=== PATIENT | female | born 1985 | race African-American/Black ===

== ENCOUNTER 2017-05-14 13:19 | Emergency (ER) | payer BC ==
[2017-05-14] MEDS ORDERED: NORMAL SALINE 1000 ML 1,000 ML IV ONE ×2 (15:36→18:00)
[2017-05-14] MEDS ORDERED: DIPHENHYDRAMINE HCL 50 MG/ML VIAL IV ONE (15:41)
--- NOTE | 2017-05-14 15:42 | ER Document Report ---
HPI - HPI Patient complains to provider of: cough, sneezing Onset: Other - 2 days Onset/Duration: Persistent Quality of pain: Achy Pain Level: 4 Context: She presents complaining of cough, sneezing and generalized body aches. Patient has had nausea and has not been able to keep food down. Patient denies any fever or urinary symptoms. Patient denies any vaginal bleeding or discharge. Associated Symptoms: Nonproductive cough, Nausea, Vomiting. denies: Productive cough, Fever Exacerbated by: Denies Relieved by: Denies Similar symptoms previously: No Recently seen / treated by doctor: No - ROS ROS below otherwise negative: Yes Systems Reviewed and Negative: Yes All other systems reviewed and negative - CONSTITUTIONAL Constitutional: DENIES: Fever - EENT EENT: REPORTS: Congestion - CARDIOVASCULAR Cardiovascular: DENIES: Chest pain - RESPIRATORY Respiratory: REPORTS: Coughing - GASTROINTESTINAL Gastrointestinal: REPORTS: Abdominal Pain, Nausea, Patient vomiting. 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 Lives with: Spouse/Significant other Family History: None Pulmonary Medical History: Reports: Hx Asthma Neurological Medical History: Denies: Hx Seizures Endocrine Medical History: Denies: Hx Diabetes Mellitus Type 1 Renal/ Medical History: Denies: Hx Kidney Stones GI Medical History: Reports: Hx Gastroesophageal Reflux Disease Past Surgical History: Reports: Hx Oral Surgery - wisdom - Immunizations Hx Diphtheria, Pertussis, Tetanus Vaccination: No Vertical Provider Document - CONSTITUTIONAL Agree With Documented VS: Yes Exam Limitations: No Limitations General Appearance: WD/WN, No Apparent Distress - INFECTION CONTROL TRAVEL OUTSIDE OF THE [place] IN LAST 30 DAYS: No - HEENT HEENT: Atraumatic, Normal ENT Exam, Normocephalic - NECK Neck: Normal Inspection, Supple. negative: Lymphadenopathy-Left, Lymphadenopathy-Right - RESPIRATORY Respiratory: Breath Sounds Normal, No Respiratory Distress, Chest Non-Tender O2 Sat by Pulse Oximetry: 98 - CARDIOVASCULAR Cardiovascular: Regular Rhythm, No Murmur, Tachycardia - GI/ABDOMEN Gastrointestinal: Abdomen Soft, Abdomen Tender - epigastric, Normal Bowel Sounds. negative: Abdominal Guarding - BACK Back: Normal Inspection. negative: CVA Tenderness-Right, CVA Tenderness-Left - MUSCULOSKELETAL/EXTREMETIES Musculoskeletal/Extremeties: VIC MEHTA - NEURO Level of Consciousness: Awake, Alert, Appropriate Motor/Sensory: No Motor Deficit - DERM Integumentary: Warm, Dry, No Rash Course - Re-evaluation Re-evalutation: 05/14/17 18:05 Patient's breath sounds clear, no concern for pneumonia at this time. Respirations unlabored. Patient without any emesis during ER stay. Discussed worsening symptoms that patient should return immediately for. Patient verbalized understanding and agrees with plan of care. - Vital Signs Vital signs: Temp Pulse Resp BP Pulse Ox 99.8 F 111 H 20 133/70 H 98 05/14/17 13:35 05/14/17 13:35 05/14/17 13:35 05/14/17 13:35 05/14/17 13:35 - Laboratory Result Diagrams: 05/14/17 15:55 05/14/17 15:55 Discharge - Discharge Clinical Impression: Cough Nausea and vomiting Qualifiers: Vomiting type: unspecified Vomiting Intractability: non-intractable Qualified Code(s): R11.2 - Nausea with vomiting, unspecified Qualifiers: Weeks of gestation: 12 weeks Qualified Code(s): Z3A.12 - 12 weeks gestation of Condition: Stable Disposition: HOME, SELF-CARE Instructions: Antinausea Medication ([facility]), Intravenous (IV) Fluids ([facility]), Viral Syndrome ([facility]), Vomiting ([facility]) Additional Instructions: Return immediately for any new or worsening symptoms Followup with your primary care provider, call tomorrow to make a followup appointment Prescriptions: Promethazine HCl [Phenergan 25 mg Tablet] 25 mg PO Q6H PRN #12 tablet PRN Reason: Forms: Return to Work Referrals: BK SANDERS FNP-C [Primary Care Provider] - Follow up as needed [facility] [Provider Group] - Follow up tomorrow
[2017-05-14] MEDS ORDERED: ACETAMINOPHEN 325 MG TABLET PO ONE (16:15)
[2017-05-14 16:18] LABS: ABSOLUTE LYMPHOCYTES (AUTO) 0.9 10^3/uL (0.5-4.7); ABSOLUTE MONOCYTES (AUTO) 0.5 10^3/uL (0.1-1.4); ABSOLUTE NEUT (AUTO) 6.3 10^3/uL (1.7-8.2); BASOPHILS % (AUTO) 0.3 % (0-2); EOSINOPHILS % (AUTO) 0.6 % (0-6); HEMATOCRIT 36.4 % (36.0-47.0); HEMOGLOBIN 12.3 g/dL (12.0-15.5); LYMPHOCYTES % (AUTO) 11.3 % (13-45); MEAN CORPUSCULAR HEMOGLOBIN 28.9 pg (27.0-33.4); MEAN CORPUSCULAR HGB CONC 33.9 g/dL (32.0-36.0); MEAN CORPUSCULAR VOLUME 85 fl (80-97); MONOCYTES % (AUTO) 6.7 % (3-13); PLATELET COUNT 281 10^3/uL (150-450); RED BLOOD COUNT 4.27 10^6/uL (3.72-5.28); RED CELL DISTRIBUTION WIDTH 13.4 % (11.5-14.0); SEGMENTED NEUTROPHILS % (AUTO) 81.1 % (42-78); TOTAL CELLS COUNTED % (AUTO) 100 %; WHITE BLOOD COUNT 7.8 10^3/uL (4.0-10.5)
[2017-05-14 16:36] LABS: ALANINE AMINOTRANSFERASE 55 U/L (9-52); ALBUMIN 4.3 g/dL (3.5-5.0); ALKALINE PHOSPHATASE 85 U/L (38-126); ANION GAP 12 (5-19); ASPARTATE AMINO TRANSFERASE 33 U/L (14-36); BILIRUBIN,DIRECT 0.6 mg/dL (0.0-0.4); BILIRUBIN,TOTAL 0.9 mg/dL (0.2-1.3); BLOOD UREA NITROGEN 9 mg/dL (7-20); CALCIUM 9.7 mg/dL (8.4-10.2); CARBON DIOXIDE 20 mmol/L (22-30); CHLORIDE 101 mmol/L (98-107); GLUCOSE 86 mg/dL (75-110); LIPASE 74.9 U/L (23-300); SODIUM 133.4 mmol/L (137-145); TOTAL PROTEIN 7.5 g/dL (6.3-8.2)
[2017-05-14 17:49] LABS: APPEARANCE,URINE SLIGHTLY-CLOUDY; BILIRUBIN,URINE NEGATIVE (NEGATIVE); COLOR,URINE YELLOW; GLUCOSE, URINE NEGATIVE (NEGATIVE); KETONES,URINE 80 mg/dL (NEGATIVE); LEUKOCYTE ESTERASE,URINE NEGATIVE (NEGATIVE); NITRITE,URINE NEGATIVE (NEGATIVE); PROTEIN,URINE 30 mg/dL (NEGATIVE); URINE SPECIFIC GRAVITY 1.029
[2017-05-14 19:01] VITALS: BP 122/69
== END 2017-05-14 19:01 | disposition home or self-care (01) ==
LOC: ER 13:19
DX: O26.891 Other specified pregnancy related conditions, first trimester (principal); R05 Cough; R06.7 Sneezing; R10.9 Unspecified abdominal pain; O21.9 Vomiting of pregnancy, unspecified; O99.511 Diseases of the respiratory system complicating pregnancy, first trimester; J45.909 Unspecified asthma, uncomplicated; Z3A.12 12 weeks gestation of pregnancy
CPT/HCPCS: 99283; 96361; 96374; 36415; 83690; 85025; 80053; 81001; J1200; J7030

== ENCOUNTER 2017-06-28 20:18 | Emergency (ER) | payer BC, MEDICAID ==
[2017-06-28] MEDS ORDERED: METOCLOPRAMIDE HCL INJ/PF 10 MG/2 ML SDV IV ONE (22:42)
[2017-06-28] MEDS ORDERED: DIPHENHYDRAMINE HCL 50 MG/ML VIAL IV ONE (22:42)
[2017-06-28] MEDS ORDERED: NORMAL SALINE 1000 ML 1,000 ML IV ONE (22:42)
--- NOTE | 2017-06-28 22:44 | ER Document Report ---
ED Medical Screen (RME) - General Chief Complaint: Vomiting Stated Complaint: VOMITING Time Seen by Provider: 06/28/17 22:42 Mode of Arrival: Ambulatory Information source: Patient Notes: Patient presents complaining of headache, nausea and vomiting. Patient states she has had vomiting off and on over this past week but vomited 3 times today. Patient complains of upper abdominal tenderness that she attributes to the vomiting. Patient states she has been unable to keep any liquids down or food today. Patient is currently 19 weeks . Patient has a history of GERD and tonsillectomy. Patient denies any vaginal bleeding. I have greeted and performed a rapid initial assessment of this patient. A comprehensive ED assessment and evaluation of the patient, analysis of test results and completion of the medical decision making process will be conducted by additional ED providers. TRAVEL OUTSIDE OF THE [place] IN LAST 30 DAYS: No - Related Data Allergies/Adverse Reactions: benzocaine [From Chloraseptic] Allergy (Verified 05/14/17 13:21) menthol [From Chloraseptic] Allergy (Verified 05/14/17 13:21) phenol [From Chloraseptic] Allergy (Verified 05/14/17 13:21) sodium phenolate [From Chloraseptic] Allergy (Verified 05/14/17 13:21) Past Medical History Pulmonary Medical History: Reports: Hx Asthma Neurological Medical History: Denies: Hx Seizures Endocrine Medical History: Denies: Hx Diabetes Mellitus Type 1 Renal/ Medical History: Denies: Hx Kidney Stones, Hx Peritoneal Dialysis GI Medical History: Reports: Hx Gastroesophageal Reflux Disease Past Surgical History: Reports: Hx Oral Surgery - wisdom - Immunizations Hx Diphtheria, Pertussis, Tetanus Vaccination: No Physical Exam - Vital signs Vitals: Temp Pulse Resp BP Pulse Ox 98.2 F 93 18 132/70 H 100 06/28/17 20:35 06/28/17 20:35 06/28/17 20:35 06/28/17 20:35 06/28/17 20:35 - Abdominal Tenderness: Tender - Epigastric Course - Vital Signs Vital signs: Temp Pulse Resp BP Pulse Ox 98.2 F 93 18 132/70 H 100 06/28/17 20:35 06/28/17 20:35 06/28/17 20:35 06/28/17 20:35 06/28/17 20:35
[2017-06-28 23:35] LABS: ABSOLUTE BASOPHILS # (AUTO) 0.1 10^3/uL (0.0-0.2); ABSOLUTE EOSINOPHILS # (AUTO) 0.1 10^3/uL (0.0-0.6); ABSOLUTE LYMPHOCYTES (AUTO) 2.8 10^3/uL (0.5-4.7); ABSOLUTE MONOCYTES (AUTO) 0.5 10^3/uL (0.1-1.4); ABSOLUTE NEUT (AUTO) 6.2 10^3/uL (1.7-8.2); BASOPHILS % (AUTO) 0.6 % (0-2); EOSINOPHILS % (AUTO) 0.9 % (0-6); HEMATOCRIT 33.6 % (36.0-47.0); HEMOGLOBIN 11.6 g/dL (12.0-15.5); LYMPHOCYTES % (AUTO) 28.8 % (13-45); MEAN CORPUSCULAR HEMOGLOBIN 29.2 pg (27.0-33.4); MEAN CORPUSCULAR HGB CONC 34.4 g/dL (32.0-36.0); MEAN CORPUSCULAR VOLUME 85 fl (80-97); MONOCYTES % (AUTO) 5.3 % (3-13); PLATELET COUNT 299 10^3/uL (150-450); RED BLOOD COUNT 3.96 10^6/uL (3.72-5.28); RED CELL DISTRIBUTION WIDTH 13.7 % (11.5-14.0); SEGMENTED NEUTROPHILS % (AUTO) 64.4 % (42-78); TOTAL CELLS COUNTED % (AUTO) 100 %; WHITE BLOOD COUNT 9.7 10^3/uL (4.0-10.5)
[2017-06-28 23:36] LABS: APPEARANCE,URINE SLIGHTLY-CLOUDY; BILIRUBIN,URINE NEGATIVE (NEGATIVE); COLOR,URINE AMBER; GLUCOSE, URINE NEGATIVE (NEGATIVE); KETONES,URINE 80 mg/dL (NEGATIVE); LEUKOCYTE ESTERASE,URINE NEGATIVE (NEGATIVE); NITRITE,URINE NEGATIVE (NEGATIVE); PROTEIN,URINE 30 mg/dL (NEGATIVE); URINE SPECIFIC GRAVITY 1.027
[2017-06-28 23:49] LABS: ALANINE AMINOTRANSFERASE 35 U/L (9-52); ALBUMIN 4.2 g/dL (3.5-5.0); ALKALINE PHOSPHATASE 94 U/L (38-126); ANION GAP 14 (5-19); ASPARTATE AMINO TRANSFERASE 27 U/L (14-36); BILIRUBIN,DIRECT 0.3 mg/dL (0.0-0.4); BILIRUBIN,TOTAL 0.6 mg/dL (0.2-1.3); BLOOD UREA NITROGEN 5 mg/dL (7-20); CALCIUM 9.8 mg/dL (8.4-10.2); CARBON DIOXIDE 24 mmol/L (22-30); CHLORIDE 101 mmol/L (98-107); GLUCOSE 85 mg/dL (75-110); LIPASE 87.1 U/L (23-300); POTASSIUM 3.8 mmol/L (3.6-5.0); SODIUM 138.7 mmol/L (137-145); TOTAL PROTEIN 7.4 g/dL (6.3-8.2)
--- NOTE | 2017-06-29 00:51 | ER Document Report ---
ED GI/ - General Mode of Arrival: Ambulatory TRAVEL OUTSIDE OF THE [place] IN LAST 30 DAYS: No <DIANE RUTLEDGE - Last Filed: 06/29/17 00:51> <CHIRAG JEFEFRSON - Last Filed: 06/29/17 02:09> - General Chief Complaint: Vomiting Stated Complaint: VOMITING Time Seen by Provider: 06/28/17 22:42 - Related Data Allergies/Adverse Reactions: benzocaine [From Chloraseptic] Allergy (Verified 05/14/17 13:21) menthol [From Chloraseptic] Allergy (Verified 05/14/17 13:21) phenol [From Chloraseptic] Allergy (Verified 05/14/17 13:21) sodium phenolate [From Chloraseptic] Allergy (Verified 05/14/17 13:21) Past Medical History - General Information source: Patient - Social History Family History: None Pulmonary Medical History: Reports: Hx Asthma Neurological Medical History: Denies: Hx Seizures Endocrine Medical History: Denies: Hx Diabetes Mellitus Type 1 Renal/ Medical History: Denies: Hx Kidney Stones, Hx Peritoneal Dialysis GI Medical History: Reports: Hx Gastroesophageal Reflux Disease Past Surgical History: Reports: Hx Oral Surgery - wisdom - Immunizations Hx Diphtheria, Pertussis, Tetanus Vaccination: No <DIANE RUTLEDGE - Last Filed: 06/29/17 00:51> - General Information source: Patient - Social History Smoking Status: Never Smoker <CHIRAG JEFFERSON - Last Filed: 06/29/17 02:09> Physical Exam - Vital signs Interpretation: Normal - General General appearance: Appears well, Alert - HEENT Head: Normocephalic, Atraumatic Eyes: Normal Pupils: PERRL - Respiratory Respiratory status: No respiratory distress Chest status: Nontender Breath sounds: Normal Chest palpation: Normal - Cardiovascular Rhythm: Regular Heart sounds: Normal auscultation Murmur: No - Abdominal Inspection: Normal, Gravid female Distension: No distension Bowel sounds: Normal Tenderness: Nontender Organomegaly: No organomegaly - Back Back: Normal, Nontender - Extremities General upper extremity: Normal inspection, Nontender, Normal color, Normal ROM , Normal temperature General lower extremity: Normal inspection, Nontender, Normal color, Normal ROM , Normal temperature, Normal weight bearing. No: Sang's sign - Neurological Neuro grossly intact: Yes Cognition: Normal Orientation: AAOx4 [place] Coma Scale Eye Opening: Spontaneous [place] Coma Scale Verbal: Oriented [place] Coma Scale Motor: Obeys Commands [place] Coma Scale Total: 15 Speech: Normal Motor strength normal: LUE, RUE, LLE, RLE Sensory: Normal - Psychological Associated symptoms: Normal affect, Normal mood - Skin Skin Temperature: Warm Skin Moisture: Dry Skin Color: Normal <CHIRAG JEFFERSON - Last Filed: 06/29/17 02:09> - Vital signs Vitals: Temp Pulse Resp BP Pulse Ox 98.2 F 93 18 132/70 H 100 06/28/17 20:35 06/28/17 20:35 06/28/17 20:35 06/28/17 20:35 06/28/17 20:35 Course - Laboratory Result Diagrams: 06/28/17 23:05 06/28/17 23:05 <DIANE RUTLEDGE - Last Filed: 06/29/17 00:51> - Laboratory Result Diagrams: 06/28/17 23:05 06/28/17 23:05 - Diagnostic Test Radiology reviewed: Reports reviewed <CHIRAG JEFFERSON - Last Filed: 06/29/17 02:09> - Re-evaluation Re-evalutation: 06/29/17 02:08 Patient with no focal findings on exam. Feels better at this time. Sludge in gallbladder ultrasound. Blood work within normal limits. Patient will have additions to her reflux medications including increasing her Zantac to 150 twice daily, adding Protonix and Carafate. She is to follow-up with her BAGGAGE CHECKER and return if she has any worsening or concerning symptoms. Understands agrees with plan. Stable for discharge. Requesting to go home. (CHIRAG JEFFERSON) - Vital Signs Vital signs: Temp Pulse Resp BP Pulse Ox 98.3 F 86 16 135/69 H 100 06/29/17 00:08 06/29/17 00:08 06/29/17 00:08 06/29/17 00:08 06/29/17 00:08 - Laboratory Laboratory results interpreted by me: 06/28/17 06/28/17 06/28/17 23:05 23:05 23:05 Hgb 11.6 L Hct 33.6 L BUN 5 L Urine Protein 30 H Urine Ketones 80 H Urine Urobilinogen 2.0 H Discharge <ALPHONSO RUTLEDGEON - Last Filed: 06/29/17 00:51> <CHIRAG JEFFERSON - Last Filed: 06/29/17 02:09> - Discharge Clinical Impression: GERD (gastroesophageal reflux disease) Qualifiers: Esophagitis presence: esophagitis presence not specified Qualified Code(s): K21.9 - Gastro-esophageal reflux disease without esophagitis Vomiting Qualifiers: Vomiting type: unspecified Vomiting Intractability: non-intractable Nausea presence: with nausea Qualified Code(s): R11.2 - Nausea with vomiting, unspecified Condition: Stable Disposition: HOME, SELF-CARE Instructions: Reflux Disease (GERD) ([facility]) Additional Instructions: Please follow-up with your BAGGAGE CHECKER as scheduled. Prescriptions: Pantoprazole Sodium [Protonix] 40 mg PO DAILY #30 tablet. Ranitidine HCl [Zantac 150 mg Tablet] 150 mg PO BID #60 tablet Sucralfate [Carafate 1 gm Tablet] 1 gm PO ACHS #120 tablet Referrals: KT MUSE MD [Primary Care Provider] - Follow up as needed Scribe Attestation: 06/29/17 02:08 I personally performed the services described in the documentation, reviewed and edited the documentation which was dictated to the scribe in my presence, and it accurately records my words and actions. (CHIRAG JEFFERSON)
[2017-06-29] MEDS ORDERED: NORMAL SALINE 1000 ML 1,000 ML IV ONE (00:54)
[2017-06-29] MEDS ORDERED: PANTOPRAZOLE SODIUM 40 MG VIAL IV ONE (01:11)
--- NOTE | 2017-06-29 01:23 | RADIOLOGY REPORT (SQ) ---
EXAM DESCRIPTION: U/S ABDOMEN LIMITED W/O DOP CLINICAL HISTORY: 32 years, Female, epig pain, vomiting COMPARISON: None. LIMITATIONS: None. FINDINGS: Gallbladder sludge. Negative sonographic Anand's test. Gallbladder wall thickness is 0.26 cm. No biliary ductal dilation. Common bile duct diameter 0.4 cm. Liver, 10 cm right kidney, abdominal aorta, partially obscured pancreas appear otherwise unremarkable. No ascites. IMPRESSION: No acute findings. Gallbladder sludge.
[2017-06-29 02:20] VITALS: BP 129/69
== END 2017-06-29 02:50 | disposition home or self-care (01) ==
LOC: ER 20:18
DX: O99.612 Diseases of the digestive system complicating pregnancy, second trimester (principal); K21.9 Gastro-esophageal reflux disease without esophagitis; O26.892 Other specified pregnancy related conditions, second trimester; R11.10 Vomiting, unspecified; Z3A.19 19 weeks gestation of pregnancy; J45.909 Unspecified asthma, uncomplicated
CPT/HCPCS: 99284; 96361; 96374; 36415; 83690; 85025; 80053; 81001; 76705; S0164; J7030

== ENCOUNTER 2017-10-24 10:38 | Emergency (ER) | payer BC, MEDICAID ==
[2017-10-24 10:46] VITALS: BP 154/92
--- NOTE | 2017-10-24 11:13 | ER Document Report ---
ED Medical Screen (RME) - General Chief Complaint: Edema Stated Complaint: SWELLING OF FEET ANKLES AND HANDS Time Seen by Provider: 10/24/17 11:10 Mode of Arrival: Ambulatory Information source: Patient Notes: This is a 32-year-old female 1, 36 weeks with a history of gestational diabetes who presents to the emergency room with swelling in the hands and feet. Patient denies headache. Patient denies abdominal pain, nausea or vomiting. Patient's blood pressure is found to be elevated in triage. Her lungs are clear. Her exam does reveal peripheral edema. TRAVEL OUTSIDE OF THE [place] IN LAST 30 DAYS: No - Related Data Allergies/Adverse Reactions: benzocaine [From Chloraseptic] Allergy (Verified 10/24/17 10:39) menthol [From Chloraseptic] Allergy (Verified 10/24/17 10:39) phenol [From Chloraseptic] Allergy (Verified 10/24/17 10:39) sodium phenolate [From Chloraseptic] Allergy (Verified 10/24/17 10:39) Past Medical History - Social History Chew tobacco use (# tins/day): No Frequency of alcohol use: None Drug Abuse: None Pulmonary Medical History: Reports: Hx Asthma Neurological Medical History: Denies: Hx Seizures Endocrine Medical History: Denies: Hx Diabetes Mellitus Type 1 Renal/ Medical History: Denies: Hx Kidney Stones, Hx Peritoneal Dialysis GI Medical History: Reports: Hx Gastroesophageal Reflux Disease Past Surgical History: Reports: Hx Oral Surgery - wisdom - Immunizations Hx Diphtheria, Pertussis, Tetanus Vaccination: No Physical Exam - Vital signs Vitals: Temp Pulse Resp BP Pulse Ox 98.2 F 96 20 154/92 H 100 10/24/17 10:43 10/24/17 10:43 10/24/17 10:43 10/24/17 10:43 10/24/17 10:43 Course - Vital Signs Vital signs: Temp Pulse Resp BP Pulse Ox 98.2 F 96 20 154/92 H 100 10/24/17 10:43 10/24/17 10:43 10/24/17 10:43 10/24/17 10:43 10/24/17 10:43 Doctor's Discharge - Discharge Referrals: KT MUSE MD [Primary Care Provider] - Follow up as needed
[2017-10-24 12:03] LABS: ALANINE AMINOTRANSFERASE 30 U/L (9-52); ALBUMIN 3.1 g/dL (3.5-5.0); ALKALINE PHOSPHATASE 154 U/L (38-126); ANION GAP 10 (5-19); ASPARTATE AMINO TRANSFERASE 26 U/L (14-36); BILIRUBIN,DIRECT 0.2 mg/dL (0.0-0.4); BILIRUBIN,TOTAL 0.4 mg/dL (0.2-1.3); BLOOD UREA NITROGEN 6 mg/dL (7-20); CALCIUM 9.2 mg/dL (8.4-10.2); CARBON DIOXIDE 21 mmol/L (22-30); CHLORIDE 108 mmol/L (98-107); GLUCOSE 75 mg/dL (75-110); POTASSIUM 4.2 mmol/L (3.6-5.0); SODIUM 139.2 mmol/L (137-145); TOTAL PROTEIN 6.3 g/dL (6.3-8.2)
[2017-10-24 12:03] LABS: APPEARANCE,URINE CLEAR; BILIRUBIN,URINE NEGATIVE (NEGATIVE); COLOR,URINE YELLOW; GLUCOSE, URINE NEGATIVE (NEGATIVE); KETONES,URINE NEGATIVE (NEGATIVE); LEUKOCYTE ESTERASE,URINE NEGATIVE (NEGATIVE); NITRITE,URINE NEGATIVE (NEGATIVE); PROTEIN,URINE NEGATIVE (NEGATIVE); URINE SPECIFIC GRAVITY 1.004; UROBILINOGEN,URINE NEGATIVE mg/dL (<2.0)
[2017-10-24 12:05] LABS: ABSOLUTE EOSINOPHILS # (AUTO) 0.1 10^3/uL (0.0-0.6); ABSOLUTE LYMPHOCYTES (AUTO) 1.7 10^3/uL (0.5-4.7); ABSOLUTE MONOCYTES (AUTO) 0.5 10^3/uL (0.1-1.4); ABSOLUTE NEUT (AUTO) 3.8 10^3/uL (1.7-8.2); BASOPHILS % (AUTO) 0.3 % (0-2); EOSINOPHILS % (AUTO) 0.9 % (0-6); HEMATOCRIT 34.8 % (36.0-47.0); HEMOGLOBIN 11.5 g/dL (12.0-15.5); LYMPHOCYTES % (AUTO) 27.4 % (13-45); MEAN CORPUSCULAR HEMOGLOBIN 27.4 pg (27.0-33.4); MEAN CORPUSCULAR VOLUME 83 fl (80-97); PLATELET COUNT 192 10^3/uL (150-450); RED BLOOD COUNT 4.19 10^6/uL (3.72-5.28); SEGMENTED NEUTROPHILS % (AUTO) 62.4 % (42-78); TOTAL CELLS COUNTED % (AUTO) 100 %; WHITE BLOOD COUNT 6.1 10^3/uL (4.0-10.5)
== END 2017-10-24 12:02 | disposition other institution (70) ==
LOC: ER 10:38
DX: O13.3 Gestational [pregnancy-induced] hypertension without significant proteinuria, third trimester (principal); M79.89 Other specified soft tissue disorders; Z3A.36 36 weeks gestation of pregnancy
CPT/HCPCS: 36415; 59025; 80053; 80307; 81001; 82570; 84156; 84550; 85025; 99284

== ENCOUNTER 2017-10-24 12:10 | Outpatient (CLI) | payer BC, MEDICAID ==
[2017-10-24] MEDS ORDERED: ACETAMINOPHEN 325 MG TABLET PO PRN (12:30)
[2017-10-24 15:27] LABS: URINE AMPHETAMINES SCREEN NEGATIVE; URINE BARBITURATES SCREEN NEGATIVE; URINE BENZODIAZEPINES SCREEN NEGATIVE; URINE COCAINE SCREEN NEGATIVE; URINE MARIJUANA (THC) SCREEN NEGATIVE; URINE METHADONE SCREEN NEGATIVE; URINE PHENCYCLIDINE SCREEN NEGATIVE
[2017-10-24 15:28] LABS: UR PRO/CREAT RATIO RESULT 0.3 mg/mg (0.0-0.2); URINE CREATININE 43.9 mg/dL (16-327); URINE PROTEIN 14.7 mg/dL (<12)
--- NOTE | 2017-10-24 15:53 | L&D Progress Notes ---
PROGRESS NOTES Datetime Report Generated by CPN: 10/24/2017 15:53 PROGRESS NOTE Impression: Reassuring Heart Rate Impression Other: CHTN at 36 wks Procedures- Other: Lab work, urine PCR and 24 hour urine Plan: Discharge Vital Signs : Reviewed; Within Normal Limits Comment: at 36 wks presents due to increased lower extremity edema this morning. Pt states she was unable to get her shoes on and go to work. She called A office and came to [facility] to be evaluated. Hx of GDM-DC and CHTN (no medication). Pt denies headache, blurred vision or epigastric pain. Cat 1 FHR tracing. BP stayed in normal range for pt today. Please see lab work results drawn today. LFT's, Plts are normal. Uric acid 6.5. Urine PCR .30. Will d/c home in stable condition, pt to start a 24 hour urine and return it to the office. F/u for NST's as scheduled tomorrow. Attending MD is Dr Lynch and agrees with the plan of care VAGINAL EXAM Contractions: uterine irritabilty MEMBRANES Membranes: Intact FETUS A FHR - Baseline: 150 Monitoring: External US Variability: Moderate 6-25bpm Accelerations: 15X15 Decelerations: None FHR Category: Category I SIGNATURE SIGNATURE: [id number] Assignment: Haleigh Lynch MD Signature: with User ID: Chaim Signature: with User ID: Chaim : with User ID: Chaim : with User ID: Chaim
--- NOTE | 2017-10-24 16:06 | Non Stress Test Report ---
Non Stress Test Datetime Report Generated by CPN: 10/24/2017 16:05 DEMOGRAPHIC EGA NST: 36.0 INDICATION Indication for Study: Other Indication for Study (NST) Other: LABOR CHECK MONITORING Monitor Explained: Monitor Explained; Test Explained; Patient Verbalized Understanding Time on Monitor: 10/24/2017 12:41 Time off Monitor: 10/24/2017 13:55 NST Duration: 74 NST INTERVENTIONS NST Interventions: PO Hydration; Reposition Patient BABY A: [id number] BABY A Movement : Present Contraction Frequency : X1 FHR Baseline : 145 Accelerations : 15X15 Decelerations : None Variability : Moderate 6-25bpm NST Review: Meets Criteria for Reactive NST NST Review and Verified By : NINO Parekh NST Results: Reactive NST REPORT Report Trigger: Send Report
== END 2017-10-24 15:55 | disposition home or self-care (01) ==
LOC: LC 12:10
PROVIDERS: ATTEND Obstetrics & Gynecology
PROC: 4A1HXCZ Monitoring of Products of Conception, Cardiac Rate, External Approach (ICD-10-PCS; principal; 2017-10-24)
DX: O10.913 Unspecified pre-existing hypertension complicating pregnancy, third trimester (principal); O24.419 Gestational diabetes mellitus in pregnancy, unspecified control; Z3A.36 36 weeks gestation of pregnancy
CPT/HCPCS: 36415; 59025; 80307; 82570; 84156; 84550

== ENCOUNTER 2017-10-29 14:44 | Outpatient (CLI) | payer BC, MEDICAID ==
[2017-10-29] MEDS ORDERED: ACETAMINOPHEN 325 MG TABLET PO PRN (14:53)
[2017-10-29 15:25] LABS: HEMATOCRIT 32.1 % (36.0-47.0); HEMOGLOBIN 10.7 g/dL (12.0-15.5); MEAN CORPUSCULAR HEMOGLOBIN 27.3 pg (27.0-33.4); MEAN CORPUSCULAR HGB CONC 33.3 g/dL (32.0-36.0); MEAN CORPUSCULAR VOLUME 82 fl (80-97); PLATELET COUNT 187 10^3/uL (150-450); RED BLOOD COUNT 3.91 10^6/uL (3.72-5.28); RED CELL DISTRIBUTION WIDTH 14.2 % (11.5-14.0); WHITE BLOOD COUNT 5.8 10^3/uL (4.0-10.5)
[2017-10-29 16:01] LABS: UR PRO/CREAT RATIO RESULT 0.4 mg/mg (0.0-0.2); URINE CREATININE 35.1 mg/dL (16-327); URINE PROTEIN 14.9 mg/dL (<12)
[2017-10-29 16:48] LABS: ALANINE AMINOTRANSFERASE 22 U/L (9-52); ALBUMIN 2.8 g/dL (3.5-5.0); ALKALINE PHOSPHATASE 130 U/L (38-126); ANION GAP 10 (5-19); ASPARTATE AMINO TRANSFERASE 24 U/L (14-36); BILIRUBIN,DIRECT 0.1 mg/dL (0.0-0.4); BILIRUBIN,TOTAL 0.1 mg/dL (0.2-1.3); BLOOD UREA NITROGEN 6 mg/dL (7-20); CALCIUM 9.5 mg/dL (8.4-10.2); CARBON DIOXIDE 19 mmol/L (22-30); CHLORIDE 107 mmol/L (98-107); GLUCOSE 93 mg/dL (75-110); POTASSIUM 4.2 mmol/L (3.6-5.0); SODIUM 135.8 mmol/L (137-145); TOTAL PROTEIN 5.8 g/dL (6.3-8.2)
--- NOTE | 2017-10-29 16:50 | Non Stress Test Report ---
Non Stress Test Datetime Report Generated by CPN: 10/29/2017 16:50 DEMOGRAPHIC EGA NST: 36.5 INDICATION Indication for Study: Chronic Hypertension; Other Indication for Study (NST) Other: LABOR CHECK- PRE-E W/U VITAL SIGNS Temperature - NST: 98.3 Pulse - NST: 78 RESP - NST: 18 NBPSYS NST: 130 NBPDIA NST: 75 MONITORING Monitor Explained: Monitor Explained; Test Explained; Patient Verbalized Understanding Time on Monitor: 10/29/2017 14:45 Time off Monitor: 10/29/2017 15:11 NST Duration: 26 NST INTERVENTIONS NST Interventions: PO Hydration; Reposition Patient Physician Notified NST: NVeda Bakeron, CNM BABY A: [id number] BABY A Movement : Present Contraction Frequency : 0 FHR Baseline : 145 Accelerations : 15X15 Decelerations : None Variability : Moderate 6-25bpm NST Review: Meets Criteria for Reactive NST NST Review and Verified By : Armando Romero, CNM NST Results: Reactive NST REPORT Report Trigger: Send Report
[2017-10-29 19:03] LABS: APPEARANCE,URINE CLEAR; BILIRUBIN,URINE NEGATIVE (NEGATIVE); COLOR,URINE STRAW; GLUCOSE, URINE NEGATIVE (NEGATIVE); KETONES,URINE NEGATIVE (NEGATIVE); LEUKOCYTE ESTERASE,URINE NEGATIVE (NEGATIVE); NITRITE,URINE NEGATIVE (NEGATIVE); PROTEIN,URINE NEGATIVE (NEGATIVE); URINE SPECIFIC GRAVITY 1.004; UROBILINOGEN,URINE NEGATIVE mg/dL (<2.0)
[2017-10-29 19:17] LABS: URINE AMPHETAMINES SCREEN NEGATIVE; URINE BARBITURATES SCREEN NEGATIVE; URINE BENZODIAZEPINES SCREEN NEGATIVE; URINE COCAINE SCREEN NEGATIVE; URINE MARIJUANA (THC) SCREEN NEGATIVE; URINE METHADONE SCREEN NEGATIVE; URINE PHENCYCLIDINE SCREEN NEGATIVE
== END 2017-10-29 16:45 | disposition home or self-care (01) ==
LOC: LC 14:44
PROVIDERS: ATTEND Obstetrics & Gynecology
PROC: 4A1HXCZ Monitoring of Products of Conception, Cardiac Rate, External Approach (ICD-10-PCS; principal; 2017-10-29)
DX: O10.913 Unspecified pre-existing hypertension complicating pregnancy, third trimester (principal); Z3A.36 36 weeks gestation of pregnancy
CPT/HCPCS: 36415; 59025; 80053; 80307; 81001; 82570; 83615; 84156; 84550; 85027

== ENCOUNTER 2017-10-31 18:02 | Inpatient (IN) | payer BC, MEDICAID ==
[2017-10-31] MEDS ORDERED: DINOPROSTONE 10 MG VAGINAL INSERT.SR PV PRN (18:13)
[2017-10-31] MEDS ORDERED: OXYTOCIN/NORMAL SALINE 20 UNIT/1,000 ML RTUINJ IV PRN (18:13)
[2017-10-31] MEDS ORDERED: RINGERS SOLUTION,LACTATED 1,000 ML IV ONE (18:13)
[2017-10-31] MEDS ORDERED: MAG HYDROX/AL HYDROX/SIMETH SUSP 30 ML UDCUP PO ONE (18:33)
[2017-10-31 18:37] LABS: APPEARANCE,URINE SLIGHTLY-CLOUDY; BILIRUBIN,URINE NEGATIVE (NEGATIVE); COLOR,URINE YELLOW; GLUCOSE, URINE NEGATIVE (NEGATIVE); KETONES,URINE NEGATIVE (NEGATIVE); LEUKOCYTE ESTERASE,URINE TRACE (NEGATIVE); NITRITE,URINE NEGATIVE (NEGATIVE); PROTEIN,URINE NEGATIVE (NEGATIVE); URINE SPECIFIC GRAVITY 1.012; UROBILINOGEN,URINE NEGATIVE mg/dL (<2.0)
[2017-10-31] MEDS ORDERED: DINOPROSTONE 10 MG VAGINAL INSERT.SR ONE (18:40)
[2017-10-31] MEDS ORDERED: MAG HYDROX/AL HYDROX/SIMETH SUSP 30 ML UDCUP ONE (18:40)
[2017-10-31 18:48] LABS: ABSOLUTE EOSINOPHILS # (AUTO) 0.1 10^3/uL (0.0-0.6); ABSOLUTE LYMPHOCYTES (AUTO) 1.9 10^3/uL (0.5-4.7); ABSOLUTE MONOCYTES (AUTO) 0.6 10^3/uL (0.1-1.4); ABSOLUTE NEUT (AUTO) 3.9 10^3/uL (1.7-8.2); BASOPHILS % (AUTO) 0.4 % (0-2); EOSINOPHILS % (AUTO) 1.1 % (0-6); HEMATOCRIT 30.8 % (36.0-47.0); HEMOGLOBIN 10.2 g/dL (12.0-15.5); LYMPHOCYTES % (AUTO) 29.6 % (13-45); MEAN CORPUSCULAR HEMOGLOBIN 27.5 pg (27.0-33.4); MEAN CORPUSCULAR VOLUME 83 fl (80-97); MONOCYTES % (AUTO) 8.9 % (3-13); PLATELET COUNT 195 10^3/uL (150-450); RED CELL DISTRIBUTION WIDTH 14.5 % (11.5-14.0); TOTAL CELLS COUNTED % (AUTO) 100 %; WHITE BLOOD COUNT 6.5 10^3/uL (4.0-10.5)
[2017-10-31 18:57] LABS: URINE AMPHETAMINES SCREEN NEGATIVE; URINE BARBITURATES SCREEN NEGATIVE; URINE BENZODIAZEPINES SCREEN NEGATIVE; URINE COCAINE SCREEN NEGATIVE; URINE MARIJUANA (THC) SCREEN NEGATIVE; URINE METHADONE SCREEN NEGATIVE; URINE PHENCYCLIDINE SCREEN NEGATIVE
[2017-10-31] MEDS: RINGERS SOLUTION,LACTATED 1,000 ML IV PRN (19:14)
[2017-10-31] MEDS ORDERED: LABETALOL HCL 200 MG TABLET ONE (20:38)
[2017-10-31] MEDS: LABETALOL HCL 200 MG TABLET PO SCH (20:48)
[2017-10-31] MEDS ORDERED: LABETALOL HCL 200 MG TABLET PO SCH (22:00)
[2017-11-01] MEDS ORDERED: DIPHENHYDRAMINE HCL 25 MG CAPSULE PO PRN (05:32)
[2017-11-01] MEDS ORDERED: DIPHENHYDRAMINE HCL 25 MG CAPSULE ONE (05:35)
[2017-11-01] MEDS: RINGERS SOLUTION,LACTATED 1,000 ML IV PRN ×2 (05:40→20:04)
[2017-11-01] MEDS ORDERED: OXYTOCIN/NORMAL SALINE 20 UNIT/1,000 ML RTUINJ ONE (08:23)
[2017-11-01] MEDS ORDERED: LIDOCAINE 1% INJ-PF (10 MG/ML) 30 ML SDV ONE (08:23)
[2017-11-01] MEDS ORDERED: MISOPROSTOL 0.2 MG TABLET ONE (08:23)
[2017-11-01] MEDS ORDERED: LABETALOL HCL 200 MG TABLET ONE ×3 (08:23→21:59)
--- NOTE | 2017-11-01 10:31 | Admission Physical ---
Datetime Report Generated by CPN: 11/01/2017 10:31 CURRENT ADMISSION Chief Complaint: Scheduled Induction of Labor Indication for Induction: Chronic Primary/Essential HTN; Maternal Diabetes Admit Impression : Term, Intrauterine Admit Plan: Admit to Unit ALLERGIES Medication Allergies: No Medication Allergies: sodium phenolate (10/31/2017); benzocaine (10/31/2017); menthol (10/31/2017); phenol (10/31/2017) Latex: No Latex Allergies OBSTETRICAL HISTORY EDC: 11/21/2017 00:00 : 5 Para: 0 Term: 0 : 0 SAB: 2 IAB: 2 Ectopic: 0 Livin Cesareans: 0 VBACs: 0 Multiple Births: 0 Gestational Diabetes: Yes Rh Sensitization: No Incompetent Cervix: No LEONARDO: No Infertility: No ART Treatment: No Uterine Anomaly: No IUGR: No Hx Previous C/S: No Macrosomia: No Hx Loss/Stillborn: No PIH: No Hx : No Placenta Previa/Abruption: No Depression/PP Depression: No PTL/PROM: No Post Hemorrhage: No Current Procedures: Ultrasound; NST Obstetrical History Comments: 2002- EAB [id number]- miscarriage g32008- miscarriage EAB 2016- current , GDM, CHTN SEE RECORDS Alcohol: No Marijuana : No Cocaine: No Other Illicit Drugs: No Cigarettes: Never Smoker. [id number] MEDICAL HISTORY Diabetes: Yes Diabetes Type: Gestational Diabetes Blood Transfusion: No Pulmonary Disease (Asthma, TB): No Breast Disease: No Hypertension: Yes Tour Conductor Surgery: No Heart Disease: No Hosp/Surgery: No Autoimmune Disorder: No Anesthetic Complications: No Kidney Disease: No Abnormal Pap Smear: No Neuro/Epilepsy: No Psychiatric Disorders: No Other Medical Diseases: No Hepatitis/Liver Disease: No Significant Family History: No Varicosities/Phlebitis: No Trauma/Violence : No Thyroid Dysfunction: Yes Medical History Comments: thyroiditis monitored in [facility] INFECTIOUS HISTORY Gonorrhea: No Genital Herpes: No Chlamydia: No Tuberculosis: No Syphilis: No Hepatitis: No HIV/AIDS Exposure: No Rash or Viral Illness: No HPV: No PHYSICAL EXAM General: Normal HEENT: Normal Neurologic: Normal Thyroid: Deferred Heart: Normal Lungs: Normal Breast: Deferred Back: Normal Abdomen: Normal Genitourinary Exam: Normal Extremities: Normal DTRs: Normal Pelvic Type: Not Done Physical Exam Comments: Gravid uterus Vital Signs: Reviewed; Within Normal Limits VAGINAL EXAM Dilatation: 1 Effacement: 0 Station: -3 Contraction Comments: uterine irritabilty MEMBRANES Membranes: Intact FETUS A EGA: 37.1 Monitoring: External US FHR- Baseline: 150 Variability: Moderate 6-25bpm Accelerations: 15X15 FHR Category: Category I Presentation: Vertex Admit Comment: Thyroiditis-sees Endo CHTN-on Labetelol 200mg bid GDM-diet controlled Had Cervidil last pm-Pitocin today. Will increase Labetelol to tid PLANS FOR LABOR AND DELIVERY Labor and Delivery: None Pain Management: None Feeding Preference: Breast Benefit of Breast Feed Discussed: Yes Circumcision: No INFORMED CONSENT Assignment: Faheem Estrada MD Signature: with User ID: Juan Alberto : with User ID: Juan Alberto : I personally evaluated and examined the patient in conjunction with the MLP and agree with the assessment, treatment plan and disposition.
[2017-11-01] MEDS ORDERED: MAG HYDROX/AL HYDROX/SIMETH SUSP 30 ML UDCUP ONE (16:06)
[2017-11-01] MEDS ORDERED: DINOPROSTONE 10 MG VAGINAL INSERT.SR PV ONE (19:15)
[2017-11-01] MEDS ORDERED: DINOPROSTONE 10 MG VAGINAL INSERT.SR ONE (20:27)
[2017-11-01] MEDS: LABETALOL HCL 200 MG TABLET PO SCH (22:00)
[2017-11-01] MEDS ORDERED: ZOLPIDEM TARTRATE 5 MG TABLET PO ONE (22:55)
[2017-11-01] MEDS ORDERED: ZOLPIDEM TARTRATE 5 MG TABLET ONE (22:57)
[2017-11-02] MEDS ORDERED: LABETALOL HCL 200 MG TABLET ONE (05:58)
[2017-11-02] MEDS: LABETALOL HCL 200 MG TABLET PO SCH ×2 (05:59→17:53)
[2017-11-02] MEDS ORDERED: ONDANSETRON ODT 4 MG TAB (6 TAB/ER DISP) PO PRN (07:29)
[2017-11-02] MEDS ORDERED: MAG HYDROX/AL HYDROX/SIMETH SUSP 30 ML UDCUP ONE ×2 (07:32→17:48)
[2017-11-02] MEDS ORDERED: ONDANSETRON 4 MG TAB.RAPDIS ONE (07:32)
[2017-11-02] MEDS ORDERED: MAG HYDROX/AL HYDROX/SIMETH SUSP 30 ML UDCUP PO ONE (08:30)
[2017-11-02] MEDS ORDERED: ONDANSETRON 4 MG TAB.RAPDIS PO ONE (08:30)
--- NOTE | 2017-11-02 08:31 | L&D Progress Notes ---
PROGRESS NOTES Datetime Report Generated by CPN: 11/02/2017 08:31 PROGRESS NOTE Impression: Reassuring Heart Rate Plan: Continue Present Management; Cervical Ripening Informed Consent Obtained: Vaginal Delivery Vital Signs : Reviewed; Within Normal Limits Comment: Doing well, irregular uc's VAGINAL EXAM Dilatation: 1 Effacement: 0 Station: -3 MEMBRANES Membranes: Intact FETUS A FHR - Baseline: 140 Monitoring: External US Variability: Moderate 6-25bpm Accelerations: 15X15 Decelerations: None : 37.1 Presentation: Vertex SIGNATURE SIGNATURE: [id number];[id number];[id number] SIGNATURE: [id number];[id number];10,[id number] SIGNATURE: ,[id number];14,[id number] SIGNATURE: [id number];10,[id number] Assignment: Carie Dickerson MD Signature: with User ID: [email or web address] : with User ID: [email or web address] : I personally evaluated and examined the patient in conjunction with the MLP and agree with the assessment, treatment plan and disposition.
--- NOTE | 2017-11-02 10:15 | L&D Progress Notes ---
PROGRESS NOTES Datetime Report Generated by CPN: 11/02/2017 10:14 PROGRESS NOTE Impression: Reassuring Heart Rate Procedures: Sterile Vag Exam Procedures- Other: Balloon catheter inserted Plan: Continue Present Management; Anticipate Vaginal Delivery Informed Consent Obtained: Vaginal Delivery Vital Signs : Reviewed; Within Normal Limits Comment: VE loose FT, long. vy, -1, balloon catheter applied without difficulty, + bloody show, Cat 1 strip, irreg uc's, will start Pitocin, monitor closely VAGINAL EXAM Dilatation: 1 Effacement: 50 Station: -1 MEMBRANES Membranes: Intact FETUS A FHR - Baseline: 140 Monitoring: External US Variability: Moderate 6-25bpm Accelerations: 15X15 Decelerations: None FETUS C SIGNATURE: [id number];[id number];10,[id number] Assignment: Carie Dickerson MD Signature: with User ID: [email or web address] : with User ID: [email or web address]
[2017-11-02] MEDS ORDERED: OXYTOCIN/NORMAL SALINE 1,000 ML IV PRN (10:23)
[2017-11-02] MEDS ORDERED: OXYTOCIN/NORMAL SALINE 20 UNIT/1,000 ML RTUINJ IV PRN ×2 (10:24→11:58)
[2017-11-02] MEDS ORDERED: ONDANSETRON HCL INJ/PF 4 MG/2 ML SDV ONE (10:27)
--- NOTE | 2017-11-02 11:11 | L&D Progress Notes ---
PROGRESS NOTES Datetime Report Generated by CPN: 11/02/2017 11:11 PROGRESS NOTE Comment: Having some darker vaginal bleeding, mistry bulb removed, no further bleeding, will monitor closely, irreg uc's, Cat [address] Dickerson aware FETUS C SIGNATURE: [id number];[id number];[id number] Assignment: Carie Dickerson MD Signature: with User ID: [email or web address] : with User ID: [email or web address]
[2017-11-02] MEDS ORDERED: CEFAZOLIN 2 GM/D5W RTU 2 GM/50 ML RTUPB IV ONE (11:31)
[2017-11-02] MEDS ORDERED: CITRIC ACID/SODIUM CITRATE ORAL SOLN 15 ML UDCUP ONE (11:31)
--- NOTE | 2017-11-02 11:35 | L&D Progress Notes ---
PROGRESS NOTES Datetime Report Generated by CPN: 11/02/2017 11:34 PROGRESS NOTE Impression: Reassuring Heart Rate Plan: Deliver- Section Comment: Cat 1 strip, C/S called by Dr. Dickerson for vaginal bleeding,, mod variability, + Accels, no decels, preparing for surgery SIGNATURE SIGNATURE: [id number];[id number];10,[id number] Assignment: Carie Dickerson MD Signature: with User ID: [email or web address] : with User ID: [email or web address]
[2017-11-02] MEDS ORDERED: DIPH/PERTUSS(ACELL)/TETANUS VAC/PF 0.5 ML SYR (>=10YO) IM PRN (11:58)
[2017-11-02] MEDS ORDERED: PROMETHAZINE HCL INJ 25 MG/1 ML VIAL IV PRN (11:58)
[2017-11-02] MEDS ORDERED: ACETAMINOPHEN 325 MG TABLET PO PRN (11:58)
[2017-11-02] MEDS ORDERED: RINGERS SOLUTION,LACTATED 1,000 ML IV PRN (11:58)
[2017-11-02] MEDS ORDERED: ACETAMINOPHEN 1,000 MG/100 ML RTUPB IV PRN (11:58)
[2017-11-02] MEDS ORDERED: OXYCODONE-ACETAMINOPHEN 5-325 MG TABLET PO PRN ×2 (11:58)
[2017-11-02] MEDS ORDERED: MEASLES,MUMPS&RUBELLA VACC/PF 0.5 ML VIAL SUBCUT PRN (11:58)
[2017-11-02] MEDS ORDERED: HYDROMORPHONE HCL INJ/PF 2 MG/ML AMPULE IV PRN (11:58)
[2017-11-02] MEDS ORDERED: SIMETHICONE 80 MG TAB.CHEW PO PRN (11:58)
[2017-11-02] MEDS ORDERED: PROPOFOL INJ 200 MG/20 ML VIAL IV ONE (12:00)
[2017-11-02] MEDS ORDERED: OXYTOCIN 10 UNIT/ML VIAL ONE (12:00)
[2017-11-02] MEDS ORDERED: EPHEDRINE SULFATE INJ 50 MG/1 ML AMPULE ONE (12:00)
[2017-11-02] MEDS ORDERED: MIDAZOLAM 2 MG/2 ML INJ ONE (12:01)
[2017-11-02] MEDS ORDERED: BUPIVACAINE HCL/DEX-WATER/PF 15 MG/2 ML AMPULE ONE ×2 (12:01→12:16)
[2017-11-02] MEDS ORDERED: OXYTOCIN/NORMAL SALINE 20 UNIT/1,000 ML RTUINJ ONE (13:11)
--- NOTE | 2017-11-02 13:16 | Operative Report ---
Operative Report DATE OF SURGERY: 11/02/17 PREOPERATIVE DIAGNOSIS: Heavy vaginal bleeding during induction after the insertion of the García balloon POSTOPERATIVE DIAGNOSIS: Bleeding from a low-lying placenta posterior placenta that was described as placenta previa early in the but had resolved OPERATION: Primary via low transverse uterine incision SURGEON: ANTHONY PUENTE ANESTHESIA: Spinal TISSUE REMOVED OR ALTERED: Placenta COMPLICATIONS: None ESTIMATED BLOOD LOSS: 300 cc INTRAOPERATIVE FINDINGS: Viable baby. Normal tubes and ovaries. Bleeding appeared to be at the leading edge of a posterior placenta. PROCEDURE: Patient was taken to the OR and placed in supine position after her spinal anesthesia. She is prepared and draped in sterile fashion. García was placed for drainage of the bladder. Low transverse incision was made and carried down the level of the fascia. The fascial incision was made with knife and extended bilaterally with curved Oconnell scissors. The fascia was off the rectus muscles using sharp and blunt dissection. The rectus muscles are in the midline. The peritoneum was entered without incident. Bladder blade was placed in uterine segment was identified. A low transverse incision was made creating a bladder flap. Bladder blade was placed low transverse uterine incision was made with the knife and extended with fingertips. The baby was delivered with some fundal pressure. Mouth and nose were suctioned free. The cord is doubly clamped and cut. Baby is passed off to the highway design engineer in attendance. The placenta was manually extracted with trailing membranes. The uterus was externalized wrapped in a moist lap sponge. Uterine contents wiped free. Uterus was closed with a running locking layer of 0 chromic suture using the second layer to imbricate the first completing a double layer closure of the uterus. The serosa was closed with a running 2-0 chromic stitch. The pelvis was irrigated and suctioned free of fluid the uterus was replaced in the abdomen. The abdominal wall peritoneum was closed with running 2-0 chromic stitch. Fascia was closed with a running 0 Vicryl in 2 segments. Dudley's layer was brought together with 0 plain gut stitch and the skin was closed with running subcuticular 4-0 undyed Vicryl stitch. The wound was dressed mother and baby did well.
[2017-11-02] MEDS ORDERED: HYDROMORPHONE HCL INJ/PF 2 MG/ML AMPULE ONE (13:18)
[2017-11-02 14:38] LABS: ABSOLUTE EOSINOPHILS # (AUTO) 0.1 10^3/uL (0.0-0.6); ABSOLUTE LYMPHOCYTES (AUTO) 1.5 10^3/uL (0.5-4.7); ABSOLUTE MONOCYTES (AUTO) 0.5 10^3/uL (0.1-1.4); ABSOLUTE NEUT (AUTO) 9.9 10^3/uL (1.7-8.2); BASOPHILS % (AUTO) 0.3 % (0-2); EOSINOPHILS % (AUTO) 0.7 % (0-6); HEMATOCRIT 34.2 % (36.0-47.0); LYMPHOCYTES % (AUTO) 12.2 % (13-45); MEAN CORPUSCULAR HEMOGLOBIN 26.7 pg (27.0-33.4); MEAN CORPUSCULAR HGB CONC 32.2 g/dL (32.0-36.0); MEAN CORPUSCULAR VOLUME 83 fl (80-97); MONOCYTES % (AUTO) 3.9 % (3-13); PLATELET COUNT 215 10^3/uL (150-450); RED BLOOD COUNT 4.13 10^6/uL (3.72-5.28); RED CELL DISTRIBUTION WIDTH 14.7 % (11.5-14.0); SEGMENTED NEUTROPHILS % (AUTO) 82.9 % (42-78); TOTAL CELLS COUNTED % (AUTO) 100 %; WHITE BLOOD COUNT 11.9 10^3/uL (4.0-10.5)
[2017-11-02 14:56] LABS: ALANINE AMINOTRANSFERASE 25 U/L (9-52); ALBUMIN 2.9 g/dL (3.5-5.0); ALKALINE PHOSPHATASE 150 U/L (38-126); ANION GAP 11 (5-19); ASPARTATE AMINO TRANSFERASE 34 U/L (14-36); BILIRUBIN,DIRECT 0.3 mg/dL (0.0-0.4); BILIRUBIN,TOTAL 0.4 mg/dL (0.2-1.3); BLOOD UREA NITROGEN 6 mg/dL (7-20); CALCIUM 9.4 mg/dL (8.4-10.2); CARBON DIOXIDE 21 mmol/L (22-30); CHLORIDE 107 mmol/L (98-107); GLUCOSE 81 mg/dL (75-110); POTASSIUM 4.8 mmol/L (3.6-5.0); SODIUM 138.6 mmol/L (137-145); TOTAL PROTEIN 5.8 g/dL (6.3-8.2); URIC ACID 6.3 mg/dL (2.5-6.2)
[2017-11-02] MEDS: KETOROLAC TROMETHAMINE INJ/PF 30 MG/1 ML SDV IV SCH ×2 (16:03→22:51)
[2017-11-02] MEDS ORDERED: MAG HYDROX/AL HYDROX/SIMETH SUSP 30 ML UDCUP PO PRN (17:39)
[2017-11-02] MEDS: DOCUSATE SODIUM 100 MG CAPSULE PO SCH (17:53)
[2017-11-02] MEDS ORDERED: LABETALOL HCL 200 MG TABLET PO ONE (20:30)
[2017-11-02] MEDS: FAMOTIDINE 20 MG TABLET PO SCH (22:51)
[2017-11-03] MEDS: KETOROLAC TROMETHAMINE INJ/PF 30 MG/1 ML SDV IV SCH (06:13)
[2017-11-03 06:52] LABS: HEMATOCRIT 26.2 % (36.0-47.0); MEAN CORPUSCULAR HEMOGLOBIN 27.4 pg (27.0-33.4); MEAN CORPUSCULAR HGB CONC 33.4 g/dL (32.0-36.0); MEAN CORPUSCULAR VOLUME 82 fl (80-97); PLATELET COUNT 180 10^3/uL (150-450); RED BLOOD COUNT 3.19 10^6/uL (3.72-5.28); RED CELL DISTRIBUTION WIDTH 14.8 % (11.5-14.0); WHITE BLOOD COUNT 8.9 10^3/uL (4.0-10.5)
[2017-11-03 06:57] LABS: HEMOGLOBIN 8.7 g/dL (12.0-15.5)
[2017-11-03] MEDS: LABETALOL HCL 200 MG TABLET PO SCH ×4 (09:28→18:33)
--- NOTE | 2017-11-03 09:31 | PDOC PROGRESS REPORT ---
Subjective-OB Progress Note for:: 11/03/17 Subjective: Doing well, feeling better, pain under control, scant bleeding, feeling gas, eating well, voiding Physical Exam (OB) Vital Signs: Temp Pulse Resp BP Pulse Ox 99.0 F 97 17 141/70 H 99 11/03/17 03:38 11/03/17 03:38 11/03/17 03:38 11/03/17 03:38 11/03/17 03:38 Intake & Output 11/02/17 11/03/17 11/04/17 06:59 06:59 06:59 Intake Total 1000 1740 Output Total 1300 Balance 1000 440 Weight 106.7 kg - PIH/Pre-Eclampsia DTR's: 2 + Clonus: Negative Headache: Absent Epigastric Pain: No Visual Changes: No - Dressing Removed: No Incision: Dressing Closure Type: OpSite CDI - Lochia Lochia Amount: Scant < 10 ml Lochia Color: Rubra/Red - Abdomen Description: Soft, Round Hernia Present: No Fundal Description: Firm, Midline Fundal Height: u/u - u/2 Objective-Diagnostic Laboratory: 11/03/17 06:17 11/02/17 14:22 11/02/17 11/02/17 11/03/17 14:22 14:22 06:17 WBC 11.9 H 8.9 RBC 4.13 3.19 L Hgb 11.0 L 8.7 L D Hct 34.2 L 26.2 L MCV 83 82 MCH 26.7 L 27.4 MCHC 32.2 33.4 RDW 14.7 H 14.8 H Plt Count 215 180 Seg Neutrophils % 82.9 H Lymphocytes % 12.2 L Monocytes % 3.9 Eosinophils % 0.7 Basophils % 0.3 Absolute Neutrophils 9.9 H Absolute Lymphocytes 1.5 Absolute Monocytes 0.5 Absolute Eosinophils 0.1 Absolute Basophils 0.0 Sodium 138.6 Potassium 4.8 Chloride 107 Carbon Dioxide 21 L Anion Gap 11 BUN 6 L Creatinine 0.78 Est GFR ( Amer) > 60 Est GFR (Non-Af Amer) > 60 Glucose 81 Uric Acid 6.3 H Calcium 9.4 Total Bilirubin 0.4 AST 34 ALT 25 Alkaline Phosphatase 150 H Total Protein 5.8 L Albumin 2.9 L Assessment and Plan(PN) - Assessment and Plan (1) Anemia Qualifiers: Anemia type: iron deficiency Is this a current diagnosis for this admission?: Yes (2) Delivery by section of full-term Is this a current diagnosis for this admission?: Yes - Time Spent with Patient Time with patient: Less than 15 minutes Medications reviewed and adjusted accordingly: Yes - Disposition Anticipated Discharge: Home Within: within 24 hours
[2017-11-03] MEDS: FAMOTIDINE 20 MG TABLET PO SCH ×2 (10:17→23:03)
[2017-11-03] MEDS: DOCUSATE SODIUM 100 MG CAPSULE PO SCH ×2 (10:17→18:33)
[2017-11-03] MEDS: PRENATAL VITAMIN W DHA CAPSULE PO SCH (10:17)
[2017-11-03] MEDS: IBUPROFEN 800 MG TABLET PO SCH ×3 (11:44→23:03)
[2017-11-04] MEDS: IBUPROFEN 800 MG TABLET PO SCH ×2 (06:03→11:06)
--- NOTE | 2017-11-04 08:13 | PDOC PROGRESS REPORT ---
Subjective-OB Progress Note for:: 11/04/17 Subjective: Doing well, ready to go home, eating, voiding, pain under control, questions answered Physical Exam (OB) Vital Signs: Temp Pulse Resp BP Pulse Ox 98.4 F 93 18 142/64 H 99 11/04/17 07:22 11/04/17 07:22 11/04/17 07:22 11/04/17 07:22 11/04/17 07:22 Intake & Output 11/03/17 11/04/17 11/05/17 06:59 06:59 06:59 Intake Total 1740 1999 Output Total 1300 Balance 440 1999 Weight 106.7 kg - PIH/Pre-Eclampsia DTR's: 2 + Clonus: Negative Headache: Absent Epigastric Pain: No Visual Changes: No - Dressing Removed: Yes Incision: Open, Well Approximated Closure Type: Surgical Glue - Lochia Lochia Amount: Scant < 10 ml Lochia Color: Rubra/Red - Abdomen Description: Tender, Soft Hernia Present: No Fundal Description: Firm, Midline Fundal Height: u/u - u/2 Objective-Diagnostic Laboratory: 11/03/17 06:17 11/02/17 14:22 Assessment and Plan(PN) - Assessment and Plan (1) Anemia Qualifiers: Anemia type: iron deficiency Is this a current diagnosis for this admission?: Yes (2) Delivery by section of full-term infant Is this a current diagnosis for this admission?: Yes - Time Spent with Patient Time with patient: Less than 15 minutes Medications reviewed and adjusted accordingly: Yes - Disposition Anticipated Discharge: Home Within: Other - home today
--- NOTE | 2017-11-04 08:23 | PDOC DISCHARGE SUMMARY ---
Final Diagnosis Discharge Date: 11/04/17 - Final Diagnosis (1) Anemia Is this a current diagnosis for this admission?: Yes (2) Delivery by section of full-term Is this a current diagnosis for this admission?: Yes Discharge Data - Discharge Medication Prescriptions: Oxycodone HCl/Acetaminophen [Percocet 5-325 mg Tablet] 1 tab PO Q4HP PRN #30 tablet PRN Reason: Ibuprofen [Motrin 800 mg Tablet] 800 mg PO Q6 #60 tablet Labetalol HCl [Normodyne 200 mg Tablet] 1 tab PO BID #60 tablet Home Medications: Ranitidine HCl [Zantac 150 mg Tablet] 150 mg PO BID #60 tablet 06/29/17 Cetirizine HCl [Zyrtec 10 mg Tablet] 1 tab PO DAILY PRN 10/24/17 Vit/Iron Fum/Folic AC [ Tablet] 1 tab PO DAILY 10/24/17 Ibuprofen [Motrin 800 mg Tablet] 800 mg PO Q6 #60 tablet 11/03/17 Labetalol HCl [Normodyne 200 mg Tablet] 1 tab PO BID #60 tablet 11/03/17 Oxycodone HCl/Acetaminophen [Percocet 5-325 mg Tablet] 1 tab PO Q4HP PRN #30 tablet 11/03/17 Reason(s) for Admission: Ceasarean Section-Primary Procedures: NST, Ultrasound Intrapartum Procedure(s): : Low Cervical, Transverse - Diagnosis Test Laboratory: Temp Pulse Resp BP Pulse Ox 98.4 F 93 18 142/64 H 99 11/04/17 07:22 11/04/17 07:22 11/04/17 07:22 11/04/17 07:22 11/04/17 07:22 10/31/17 10/31/17 11/02/17 18:10 18:35 14:22 RBC 3.70 L 4.13 Hgb 10.2 L 11.0 L Hct 30.8 L 34.2 L Urine Opiates Screen NEGATIVE 11/03/17 06:17 RBC 3.19 L Hgb 8.7 L D Hct 26.2 L Urine Opiates Screen - Discharge information/Instructions Discharge Activity: Activity As Tolerated, No Lifting Over 10 Pounds, Pelvic Rest Discharge Diet: As Tolerated, Regular Disposition: HOME, SELF-CARE Follow up with: [facility] in: 1, Weeks
[2017-11-04 09:19] VITALS: BP 141/72
[2017-11-04] MEDS: LABETALOL HCL 200 MG TABLET PO SCH (11:04)
[2017-11-04] MEDS: DOCUSATE SODIUM 100 MG CAPSULE PO SCH (11:04)
[2017-11-04] MEDS: FAMOTIDINE 20 MG TABLET PO SCH (11:05)
[2017-11-04] MEDS: PRENATAL VITAMIN W DHA CAPSULE PO SCH (11:06)
== END 2017-11-04 12:24 | disposition home or self-care (01) | DRG 765 ==
LOC: LR 18:02 → EEVIPCON 18:02 → LR 11-02 12:07 → 2S 11-02 15:10
PROVIDERS: ADMIT Obstetrics & Gynecology; ATTEND Obstetrics & Gynecology
PROC: 0W3R7ZZ Control Bleeding in Genitourinary Tract, Via Natural or Artificial Opening (ICD-10-PCS; 2017-11-01)
PROC: 10D00Z1 Extraction of Products of Conception, Low, Open Approach (ICD-10-PCS; principal; 2017-11-02)
PROC: 4A1HXCZ Monitoring of Products of Conception, Cardiac Rate, External Approach (ICD-10-PCS; 2017-11-02)
DX: O10.02 Pre-existing essential hypertension complicating childbirth (principal); O44.53 Low lying placenta with hemorrhage, third trimester; O99.02 Anemia complicating childbirth; D50.9 Iron deficiency anemia, unspecified; O24.429 Gestational diabetes mellitus in childbirth, unspecified control; O99.284 Endocrine, nutritional and metabolic diseases complicating childbirth; E06.9 Thyroiditis, unspecified; Z88.4 Allergy status to anesthetic agent; Z88.8 Allergy status to other drugs, medicaments and biological substances; Z3A.37 37 weeks gestation of pregnancy; Z37.0 Single live birth
CPT/HCPCS: 1961; 36415; 80053; 80307; 81005; 83615; 84550; 85025; 85027; 86592; 86850; 86900; 86901; 88307; 90715; 94799; C1758; J0690; J1170; J1885; J2250; J2405; J2590; J2704; J3490; S0119

== ENCOUNTER → 2020-02-10 | Outpatient (CLI) | payer BC | LOC: OD 14:31 | PROVIDERS: ATTEND Otolaryngology | DX: J30.9 Allergic rhinitis, unspecified (principal) | CPT/HCPCS: 36415; 82785; 86003 ==

== ENCOUNTER 2020-02-16 07:47 | Day surgery (SDC) | payer BC, MEDICAID ==
[2020-02-16] MEDS ORDERED: CEFAZOLIN 2 GM/D5W RTU 2 GM/50 ML RTUPB IV PRN (07:59)
[2020-02-16] MEDS ORDERED: CEFAZOLIN 2 GM/D5W RTU 2 GM/50 ML RTUPB IV ONE (09:06)
[2020-02-16] MEDS ORDERED: METOCLOPRAMIDE HCL INJ/PF 10 MG/2 ML SDV ONE (10:07)
[2020-02-16] MEDS ORDERED: DEXAMETHASONE SOD PHOSPHATE INJ 4 MG/1 ML VIAL ONE (10:07)
[2020-02-16] MEDS ORDERED: ONDANSETRON HCL INJ/PF 4 MG/2 ML SDV ONE ×2 (10:07→16:00)
[2020-02-16] MEDS ORDERED: SUCCINYLCHOLINE CHLORIDE INJ 200 MG/10 ML VIAL ONE (10:07)
[2020-02-16] MEDS ORDERED: ROCURONIUM BROMIDE INJ 50 MG/5 ML VIAL IV ONE (10:07)
[2020-02-16] MEDS ORDERED: GLYCOPYRROLATE 1 MG/5 ML VIAL ONE (10:07)
[2020-02-16] MEDS ORDERED: DIPHENHYDRAMINE HCL 50 MG/ML VIAL ONE (10:07)
[2020-02-16] MEDS ORDERED: FENTANYL CITRATE INJ/PF 100 MCG/2 ML AMPUL ONE (10:19)
[2020-02-16] MEDS ORDERED: HYDROMORPHONE HCL INJ/PF 2 MG/ML AMPULE ONE (10:19)
[2020-02-16] MEDS ORDERED: MIDAZOLAM 2 MG/2 ML INJ ONE (10:19)
[2020-02-16] MEDS ORDERED: PROPOFOL INJ 200 MG/20 ML VIAL IV ONE (10:20)
[2020-02-16] MEDS ORDERED: BUPIVACAINE HCL 0.5%/EPI 1:200000 INJ 1.8 ML CARTRIDGE ONE (10:33)
[2020-02-16] MEDS ORDERED: MEPERIDINE HCL/PF INJ 25 MG/1 ML DISP.SYRIN IV PRN (11:33)
[2020-02-16] MEDS ORDERED: MORPHINE SULFATE 10 MG/ML INJ IV PRN (11:33)
[2020-02-16] MEDS ORDERED: PROMETHAZINE HCL INJ 25 MG/1 ML VIAL IV PRN (11:33)
[2020-02-16] MEDS ORDERED: DIPHENHYDRAMINE HCL 50 MG/ML VIAL IV PRN (11:33)
[2020-02-16] MEDS ORDERED: OXYCODONE-ACETAMINOPHEN 5-325 MG TABLET PO PRN ×2 (11:33)
[2020-02-16] MEDS ORDERED: FENTANYL CITRATE INJ/PF 100 MCG/2 ML AMPUL IV PRN ×3 (11:33)
[2020-02-16] MEDS ORDERED: ONDANSETRON HCL INJ/PF 4 MG/2 ML SDV IV PRN ×2 (11:33→15:35)
[2020-02-16] MEDS ORDERED: HYDROCODONE/ACETAMINOPHEN 5-325 MG TABLET PO PRN (15:35)
[2020-02-16] MEDS ORDERED: ONDANSETRON HCL INJ/PF 4 MG/2 ML SDV IV ONE (16:01)
[2020-02-16 19:07] VITALS: BP 108/62
--- NOTE | 2020-02-21 11:19 | Operative Report ---
Operative Report-[facility] Operative Report: Date of procedure: February 16, 2020 Preoperative diagnoses: 1. Dominant right thyroid nodule 2. Bilateral/total thyroid nodules and cysts 3. Patient with history of worsening compressive symptoms from her thyroid Postoperative diagnoses: 1. Dominant right thyroid nodule 2. Bilateral/total thyroid nodules and cyst 3. Patient with history of worsening compressive symptoms from her thyroid Operation performed: 1. Right Thyroid Lobectomy with complete isthmusectomy 2. Intraoperative nerve monitoring (NIM) Primary Surgeon of Record: Dr. Jim Vieyra Assisting surgeon: None Anesthetic: General endotracheal tube anesthesia Anesthesia provider: GIUSEPPE Arteaga Estimated blood loss: 20 mL Fluids: 1500 mL Complications: None Drains: None Sponge Count: Verified Needle Count: Verified Materials forwarded as specimen: 1. Right thyroid lobe with complete isthmus Findings: 1. Significantly enlarged right thyroid lobe with dominant nodule and the thyroid isthmus was also significantly enlarged. 2. There was also left thyroid lobe enlargement as noted preoperatively. 3. There was no other lymphadenopathy or concerning findings. 4. Right parathyroid gland prospects and the right recurrent laryngeal nerve were all identified and preserved. The right recurrent laryngeal nerve stimulat ed appropriately at 1m Amp during and at the end of the case. Indications: This is a 34-year-old Afro-[place]er female patient who has been seen and evaluated [facility] who had been referred from endocrinology, Dr. Morin for definitive surgical management. There was an extensive discussion held with the patient with plan made to proceed with right thyroid lobe/isthmus surgery only. The patient is aware that there is increased left thyroid lobe prominence with dominant thyroid cyst, but she is not interested in a total thyroidectomy. However, she is aware that depending on the final pathology results she may need to return to the operating room within 1 to 2 weeks for completion left thyroid lobectomy. The patient voiced an understanding of her medical findings to relating to her thyroid disorder and desired proceed with thyroid surgery. The patient voiced an understanding of the procedure/surgery and all of the risks and complications, and consent was obtained. Procedure: The patient was taken to the main operating room and placed on the operating room table in the supine position. Appropriate monitors were placed. Using mask and IV access, general anesthesia was induced. The patient was next transorally intubated without difficulty. The patient was then positioned for right thyroid lobe and isthmus surgery. The NIM monitoring system was set up and tested appropriately before beginning the case. The patient's anterior neck had a planned incision site marked with a surgical marking pen followed by infiltration with local anesthetic with epinephrine. The patient was then prepped and draped in a sterile fashion for thyroid surgery. Next, an incision was made down through the level of the subcutaneous tissues and platysma. Using blunt and sharp dissection as well as Bovie and bipolar electrocautery skin/soft tissue flaps were elevated in a sub-platysmal fashion without difficulty. The strap muscles were next identified and the midline was divided allowing the strap muscles to be mobilized and reflected laterally. At this point the right sided strap muscles were reflected laterally and dissection proceeded utilizing blunt and sharp dissection. The superior and inferior poles of the significantly enlarged right thyroid lobe were clearly identified. The vasculature in these areas was clearly identified. During this process of mobilizing the right thyroid lobe there were parathyroid gland prospects that were identified and preserved. Next, the right recurrent laryngeal nerve was clearly identified and preserved. At this point the thyroid lobe was released from the area of Ying's ligament and mobilized onto the anterior tracheal wall and was divided in the mid portion of the isthmus to complete the partial isthmectomy. The specimen was then removed and passed off for permanent pathology evaluation. The right recurrent laryngeal nerve was stimulated at a setting of 1 milliamp without difficulty. Next, the neck was thoroughly irrigated and suctioned. Additional hemostasis was provided with bipolar electrocautery. Findings were also as noted above. At this point the remaining thyroid isthmus to was noted to be significantly prominent with concern for a notable anterior neck bulge/nodule from this tissue and how prominently it was protruding after releasing the right thyroid lobe and isthmus portion. Therefore an intraoperative decision was made to mobilize the remaining left aspect of the thyroid isthmus which was removed without difficulty. Bipolar electrocautery was again utilized for adequate hemostasis which was also confirmed again after additional irrigation and suctioning. Adequate hemostasis was noted and the strap muscles were re-approximated in the midline with 5-0 Vicryl suture. The platysma was also re-approximated with 5-0 Vicryl suture. 5-0 Monocryl suture was next utilized for re-approximation of the deep dermal tissue layer and for re-approximation of the skin margins via a continuous dermal suture. Next, the skin was cleaned and dried followed by placement of Mastisol, Steri-Strips, and a fluffs pressure dressing. The patient was then returned to the anesthesia staff and was allowed to emerge from general anesthesia. The patient was extubated in the main operating room and was then transported to the post-anesthesia recovery unit in stable condition. There were no complications.
== END 2020-02-16 18:15 | disposition home or self-care (01) ==
LOC: OROUT 07:47 → EEVIPCON 07:47 → OROUT 18:15
PROVIDERS: ATTEND Otolaryngology
DX: E04.2 Nontoxic multinodular goiter (principal); R68.89 Other general symptoms and signs; R09.82 Postnasal drip; J34.2 Deviated nasal septum; J34.3 Hypertrophy of nasal turbinates; J30.9 Allergic rhinitis, unspecified; R09.81 Nasal congestion; Z79.899 Other long term (current) drug therapy; Z20.828 Contact with and (suspected) exposure to other viral communicable diseases
CPT/HCPCS: 36415; 84703; 00320; 60220; U0003; J2250; J3490 ×2; J1100; J1200; J3010; J2765; J1170; J0330; J2405; J2704; J0690; C9803; 320; 87635